=== PATIENT | female | born 2005 | race Two or more races ===

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

== ENCOUNTER 2024-07-31 15:31 | Outpatient (CLI) | payer OTHER | END 2024-07-31 15:33 | disposition home or self-care (01) | LOC: PRENATAL 15:31 | PROVIDERS: ATTEND Obstetrics & Gynecology Maternal & Fetal Medicine | DX: O36.80X0 Pregnancy with inconclusive fetal viability, not applicable or unspecified (principal); Z36.82 Encounter for antenatal screening for nuchal translucency; Z14.8 Genetic carrier of other disease; Z3A.11 11 weeks gestation of pregnancy ==

== ENCOUNTER 2024-10-01 11:02 | Outpatient (CLI) | payer OTHER | END 2024-10-01 11:03 | disposition home or self-care (01) | LOC: PRENATAL 11:02 | PROVIDERS: ATTEND Obstetrics & Gynecology Maternal & Fetal Medicine | DX: O44.00 Complete placenta previa NOS or without hemorrhage, unspecified trimester (principal); Z3A.20 20 weeks gestation of pregnancy ==

== ENCOUNTER 2024-12-21 14:33 | Outpatient (CLI) | payer OTHER | END 2024-12-21 14:35 | disposition home or self-care (01) | LOC: PRENATAL 14:33 | PROVIDERS: ATTEND Obstetrics & Gynecology Maternal & Fetal Medicine | DX: O26.849 Uterine size-date discrepancy, unspecified trimester (principal); O36.8199 Decreased fetal movements, unspecified trimester, other fetus; O34.219 Maternal care for unspecified type scar from previous cesarean delivery; O99.019 Anemia complicating pregnancy, unspecified trimester; Z3A.32 32 weeks gestation of pregnancy ==

== ENCOUNTER 2025-01-11 09:15 | Outpatient (CLI) | payer OTHER | END 2025-01-11 09:16 | disposition home or self-care (01) | LOC: PRENATAL 09:15 | PROVIDERS: ATTEND Obstetrics & Gynecology Maternal & Fetal Medicine | DX: Z76.1 Encounter for health supervision and care of foundling (principal) ==

== ENCOUNTER 2025-02-01 14:57 | Inpatient (IN) | payer OTHER ==
[~2025-02-01] VITALS: Ht 152.4 cm; Wt 75.7 kg
[2025-02-01 15:11] LABS: URINE APPEARANCE Clear; URINE BILIRRUBIN Negative (NEGATIVE); URINE BLOOD Negative; URINE COLOR Dark Yellow; URINE GLUCOSE Negative (NEGATIVE); URINE KETONE Trace (NEGATIVE); URINE LEUKOCYTE Large; URINE NITRATE Negative; URINE PROTEIN Trace (NEGATIVE); URINE UROBILINOGEN 1.0 E.U./dl
[2025-02-01 15:14] LABS: URINE BACTERIA 1964.3 uL (0.0-1933); URINE EPITHELIAL CELLS 58.3 uL (0.0-38.8); URINE RBC 3.9 uL (0.0-20.8); URINE WBC 23.3 uL (0.0-23.2)
[2025-02-01 15:36] LABS: BASO % 0.3 % (0.1-1.2); EOS # 0.03 (0.04-0.54); EOS % 0.3 % (0.7-7.0); LYMPH # 1.43 (1.18-3.74); LYMPH % 13.1 % (19.3-53.1); MEAN PLATELET VOLUME 10.20 fl (9.4-12.4); MONO # 0.77 (0.24-0.82); MONO % 7.0 % (4.7-12.5); NEUT # 8.62 (1.56-6.13); NEUT % 78.7 % (34.0-71.1); RED CELL DISTRIBUTION WIDTH 23.2 % (11.6-14.4)
[2025-02-01 15:38] LABS: INR 1.0
[2025-02-01 15:56] LABS: URINE CAST 0.73 uL (0.0-1.40); URINE MUCUS MODERATE
[2025-02-03 11:37] VITALS: BP 110/62
[2025-02-03] MEDS ORDERED: RINGERS SOLUTION,LACTATED 1,000 ML IV SCH (12:00)
[2025-02-03] MEDS ORDERED: PRENATABS RX T1 EACH PO (12:37)
[2025-02-03] MEDS ORDERED: IRON325 MG PO (12:37)
[2025-02-03] MEDS ORDERED: FOLIC ACID20 MG PO (12:37)
[2025-02-03] MEDS ORDERED: TYLENOL325 MG PO (12:40)
[2025-02-03 12:53] LABS: BASO % 0.3 % (0.1-1.2); EOS # 0.03 (0.04-0.54); EOS % 0.3 % (0.7-7.0); LYMPH # 0.62 (1.18-3.74); LYMPH % 5.8 % (19.3-53.1); MEAN PLATELET VOLUME 10.30 fl (9.4-12.4); MONO # 0.82 (0.24-0.82); MONO % 7.7 % (4.7-12.5); NEUT # 9.10 (1.56-6.13); NEUT % 85.4 % (34.0-71.1); RED CELL DISTRIBUTION WIDTH 23.5 % (11.6-14.4)
[2025-02-03] MEDS ORDERED: GUAIFENESIN 200 MG/10 ML BLIST.PACK PO SCH (13:00)
[2025-02-03] MEDS ORDERED: AZITHROMYCIN 500 MG VIAL IV SCH (13:12)
[2025-02-03 13:33] LABS: COVID-19 AG NEGATIVE (NEGATIVE)
[2025-02-03 16:45] VITALS: BP 109/62; O2SAT 100
[2025-02-03] MEDS ORDERED: ACETAMINOPHEN 500 MG GEL..CAP PO PRN (17:45)
[2025-02-03 20:00] VITALS: BP 97/59
[2025-02-03 23:22] VITALS: BP 102/66; O2SAT 98
[2025-02-04 03:04] VITALS: BP 110/73; O2SAT 100
[2025-02-04 07:38] VITALS: BP 106/69
[2025-02-04 11:17] VITALS: BP 102/74
[2025-02-04] MEDS ORDERED: OXYTOCIN 10 UNITS/ML VIAL IV ONE (13:30)
[2025-02-04] MEDS ORDERED: ERYTHROMYCIN BASE OPHT 1GM EACH TUBE OP ONE (13:30)
[2025-02-04] MEDS ORDERED: MORPHINE SULFATE 4 MG/ML CARTRIDGE IV PRN (15:15)
[2025-02-04 16:00] VITALS: BP 104/69
[2025-02-04] MEDS ORDERED: KETOROLAC TROMETHAMINE 30 MG VIAL IV SCH (18:00)
[2025-02-04 23:11] LABS: BASO % 0.3 % (0.1-1.2); EOS # 0.01 (0.04-0.54); EOS % 0.1 % (0.7-7.0); LYMPH # 1.11 (1.18-3.74); LYMPH % 11.9 % (19.3-53.1); MEAN PLATELET VOLUME 10.10 fl (9.4-12.4); MONO # 0.76 (0.24-0.82); MONO % 8.1 % (4.7-12.5); NEUT # 7.35 (1.56-6.13); NEUT % 78.7 % (34.0-71.1); RED CELL DISTRIBUTION WIDTH 24.1 % (11.6-14.4)
[2025-02-05] VITALS: BP 114/72
[2025-02-05] MEDS ORDERED: ACETAMINOPHEN 500 MG GEL..CAP PO SCH (06:00)
[2025-02-05 08:47] VITALS: BP 128/82
[2025-02-05] MEDS ORDERED: PNV,CALCIUM 72/IRON/FOLIC ACID 1 TAB TABLET PO SCH (09:00)
[2025-02-05] MEDS ORDERED: DOCUSATE SODIUM 100MG CAP PO SCH (09:00)
[2025-02-05] MEDS ORDERED: SIMETHICONE 125 MG CAPSULE PO SCH (09:00)
[2025-02-05] MEDS ORDERED: GABAPENTIN 300 MG CAPSULE PO SCH (09:00)
[2025-02-05 16:56] VITALS: BP 132/84
[2025-02-05] MEDS ORDERED: PROMETHAZINE HCL 25 MG/ML AMPUL IV PRN (17:00)
[2025-02-05] MEDS ORDERED: ALBUTEROL SULFATE 3 ML/2.5 MG AMPUL.NEB IH PRN (17:00)
[2025-02-05] MEDS ORDERED: ALBUTEROL SULFATE 3 ML/2.5 MG AMPUL.NEB IH SCH (18:00)
[2025-02-05 20:00] VITALS: BP 124/78; O2SAT 97
[2025-02-06] VITALS: BP 103/63
[2025-02-06 09:00] VITALS: BP 121/83
[2025-02-06 17:50] VITALS: BP 117/78
[2025-02-07 00:48] VITALS: BP 121/79
== END 2025-02-07 14:03 | disposition home or self-care (01) | DRG 785 ==
LOC: OB/GYN 02-03 11:54 → LDR 02-03 11:54 → O/R 02-04 13:45 → OB/GYN 02-04 15:55
PROVIDERS: ADMIT Obstetrics & Gynecology; ATTEND Obstetrics & Gynecology
PROC: 4A1HXCZ Monitoring of Products of Conception, Cardiac Rate, External Approach (ICD-10-PCS; 2025-02-03)
PROC: 0UB70ZZ Excision of Bilateral Fallopian Tubes, Open Approach (ICD-10-PCS; 2025-02-04)
PROC: 8E0ZXY6 Isolation (ICD-10-PCS; 2025-02-04)
PROC: 4A033R1 Measurement of Arterial Saturation, Peripheral, Percutaneous Approach (ICD-10-PCS; 2025-02-04)
PROC: 10D00Z1 Extraction of Products of Conception, Low, Open Approach (ICD-10-PCS; principal; 2025-02-04 15:00)
PROC: 3E0F7GC Introduction of Other Therapeutic Substance into Respiratory Tract, Via Natural or Artificial Opening (ICD-10-PCS; 2025-02-05)
DX: O34.211 Maternal care for low transverse scar from previous cesarean delivery (principal); O99.52 Diseases of the respiratory system complicating childbirth; J06.9 Acute upper respiratory infection, unspecified; Z3A.38 38 weeks gestation of pregnancy; Z37.0 Single live birth; Z20.822 Contact with and (suspected) exposure to COVID-19; Z30.2 Encounter for sterilization